=== PATIENT | male | born 1990 | race African-American/Black ===

== ENCOUNTER 2022-07-27 09:44 | Emergency (ER) | payer SELFPAY ==
[~2022-07-27] VITALS: Ht 193 cm; Wt 75.0 kg
[2022-07-27] MEDS ORDERED: KETOROLAC 30MG/ML VIAL IM ONE (11:45)
[2022-07-27] MEDS ORDERED: LIDOCAINE HCL/PF 1% 10 MG/ML 5ML VIAL INFIL ONE (11:45)
[2022-07-27] MEDS ORDERED: BACITRACIN ZINC OINT UDPKT TOP ONE (11:45)
[2022-07-27] MEDS ORDERED: AMOX1TAB16 MT (11:47)
[2022-07-27] MEDS ORDERED: IBUP-2029 MT (11:47)
[2022-07-27 11:50] VITALS: BP 181/102
== END 2022-07-27 14:08 | disposition home or self-care (01) ==
LOC: ER 11:34
DX: L03.011 Cellulitis of right finger (principal)
CPT/HCPCS: 10060; 73140; 87070; 87077; 87186; 87205; 96372; 99283; J1885; J3490; Z7610